=== PATIENT | male | born 1950 | race Caucasian/White ===

== ENCOUNTER 2018-09-25 07:19 | Emergency (ER) | payer MEDICARE ==
[~2018-09-25] VITALS: Ht 182.9 cm; Wt 121.0 kg
[2018-09-25] MEDS ORDERED: MAGNESIUM SULFATE 1 GM/2 ML ONE ×2 (07:30→09:00)
[2018-09-25] MEDS ORDERED: CODE BLUE RESPONSE XX ONE (07:30)
[2018-09-25] MEDS ORDERED: LIDOCAINE 2% 100MG/5ML SYRINGE ONE (07:30)
[2018-09-25] MEDS ORDERED: EPINEPHRINE SYRINGE 0.1 MG/ML, 10ML ONE (07:30)
[2018-09-25] MEDS ORDERED: AMIODARONE 50 MG/ML, 3ML ONE (07:30)
[2018-09-25] MEDS ORDERED: SODIUM BICARB 8.4%, 50ML SYRINGE ONE (07:30)
--- NOTE | 2018-09-25 07:40 | NUR ---
BIB [facility] AT 0717 CPR IN PROGRESS ERP TO THE BS ON PT ARRIVAL [facility] ON SCENE AT 0632 THEY FOUND PT IN ARREST REPORTED PT ALTERED THEN SHE WITNESSED THE ARREST [facility] STARTED CPR AT 0633 AND REPORTS SHORT PERIOD OF ROSC THEN PT RETURNED TO [facility] ACLS PROTOCOL CONTINUED ENROUT TO HOSP ON ARRIVAL AT [facility] PT IN FULL ARREST WITH CPR IN PROGRESS CPR CONTINUED WITH ACLS PROTOCAL UNTIL 07 PT DID NOT RETURN TO [facility] AT ANY TIME IN THE ED
--- NOTE | 2018-09-25 07:54 | NUR ---
ATTEMPTED TO PHONE PT'S SPOUSE AT NUMBER PROVIDED BY EMS. NO ANSWER. MESSAGE LEFT TO CALLBACK ER TO DISCUSS PT'S CONDITION. 1205 - [facility] CONTACTED. PT APPROVED TISSUE DONOR. 1852 - ME CONTACTED.
[2018-09-25] MEDS ORDERED: SODIUM CHLORIDE 0.9% 1,000ML IVBOLUS ONE (08:00)
[2018-09-25] MEDS ORDERED: ONDANSETRON 2MG/ML, 2ML IVPush ONE (08:00)
== END 2018-09-25 09:47 | disposition expired ==
LOC: ED 09:41
DX: I46.9 Cardiac arrest, cause unspecified (principal); I49.01 Ventricular fibrillation; I45.81 Long QT syndrome; I25.2 Old myocardial infarction; I25.10 Atherosclerotic heart disease of native coronary artery without angina pectoris
CPT/HCPCS: 92950; 99291; J0282; J3475